=== PATIENT | female | born 1955 | race Caucasian/White ===

== ENCOUNTER 2017-04-28 15:54 | Inpatient (IN) ==
[2017-04-28] MEDS ORDERED: KETOROLAC 15 MG/ML INJECTION IVP ONE (16:23)
--- NOTE | 2017-04-28 16:29 | Emergency Department Report ---
Fever HPI - General Chief Complaint: Fever <Catarino Rouse 04/30/17 10:51> Stated Complaint: achy,nausea <Catarino Rouse 04/30/17 10:51> Time Seen by Provider: 04/28/17 16:11 <Catarino Rouse 04/30/17 10:51> Source: patient, family <Donna Gtz 04/28/17 16:32> Mode of arrival: wheelchair <Donna Gtz 04/28/17 16:32> Limitations: physical limitation <Donna Gtz 04/28/17 16:32> - History of Present Illness HPI Narrative: Pt was seen in the ER yesterday for fever and general aches and pains. Pt was given pain meds and antibiotics for home after having multiple lab and radiology exams. Pt returns today with continued complaint of general malaise, fever, and pain. Pt SpO2 on RA on arrival are 77%. PT has a history of MS. <TresaDonna Davidson 04/28/17 16:32> MD complaint: fever, malaise, weakness <Donna Gtz 04/28/17 16:32> Onset (ago): day(s) <JerrellbethDonna Davidson 04/28/17 16:32> Associated symptoms: denies other symptoms <Donna Gtz 04/28/17 16: 32> Relieving factors: nothing <JerrellbethDonna Davidson 04/28/17 16:32> Exacerbating factors: nothing <TresaDonna Davidson 04/28/17 16:32> Treatments prior to arrival fever: antibiotics, other <Donna Gtz 16:32> - Related Data Home Medications Medication Instructions Recorded Confirmed Baclofen [Lioresal Intrathecal] 1 ml IT CONT #0 03/02/12 04/28/17 Cinnamon Bark [Cinnamon] 500 mg PO DAILY #0 03/02/12 04/28/17 Interferon Beta-1A [Avonex] 0.5 ml IM WEEKLY #0 03/02/12 04/28/17 [place]-3 Fatty Acids [Fish Oil] 300 mg PO DAILY #0 03/02/12 04/28/17 Atenolol 25 mg PO DAILY #0 09/29/15 04/28/17 Oxybutynin Chloride [Oxybutynin 20 mg PO DAILY #0 09/29/15 04/28/17 Chloride ER] Pravastatin Sodium [Pravachol] 40 mg PO HS #0 09/29/15 04/28/17 Sertraline HCl 100 mg PO DAILY #0 09/29/15 04/28/17 Meloxicam 15 mg PO DAILY #0 tab 08/04/16 04/28/17 Acetaminophen [Tylenol Extra 1 - 2 tab PO Q6H PRN #0 tab 08/14/16 04/28/17 Strength] Omeprazole 20 mg PO ACB #0 tab 08/14/16 04/28/17 Triamcinolone Acetonide [Nasacort] 2 spray EA NOSTRIL DAILY PRN #0 ml 08/14/16 04/28/17 Multivitamin [Multivitamins] 1 each PO DAILY 04/27/17 04/28/17 Previous Rx's Medication Instructions Recorded Levofloxacin [Levaquin] 500 mg PO DAILY #9 tab 04/27/17 Oxycodone/Acetaminophen 5/325 1 - 2 tab PO Q4-6HPRN PRN #20 tab 04/27/17 [Percocet 5/325] <Catarino Rouse 04/30/17 10:51> Allergies Allergy/AdvReac Type Severity Reaction Status Date / Time clindamycin Allergy Mild PRURITIS Verified 04/28/17 16:03 sulfamethoxazole Allergy Unknown Verified 04/28/17 16:03 trimethoprim Allergy Unknown Verified 04/28/17 16:03 ceftriaxone sodium Allergy Mild PRURITIS Uncoded 04/28/17 16:03 <Catarino Rouse 04/30/17 10:51> Review of Systems All systems: reviewed and negative except as stated <Donna Gtz 16:32> Constitutional: Reports: fever, weakness <Donna Gtz 04/28/17 16:32> Respiratory: Denies: cough, dyspnea <Donna Gtz 04/28/17 16:32> Gastrointestinal: Denies: nausea, vomiting, diarrhea <Donna Gtz 16:32> Genitourinary: Denies: urgency <Donna Gtz 04/28/17 16:32> Musculoskeletal: Reports: other <Donna Gtz 04/28/17 16:32> Neurological: Reports: as per HPI <Donna Gtz 04/28/17 16:32> Endocrine: Reports: fatigue <Donna Gtz 04/28/17 16:32> [facility] Patient Stated Medical History Multiple Sclerosis Yes Post Menopausal Yes Clinic Medical History (Last Updated 04/27/17 @ 13:11 by Brit Barakat, [facility] Multiple sclerosis (Chronic Medical) <Catarino Rouse - 04/30/17 10:51> Surgical History: *baclofen pump <Donna Gtz 04/28/17 16:32> - Social History Smoking status: Never smoker <Donna Gtz 04/28/17 16:32> Physical Exam - Limitations Limitations: physical limitation <Donna Gtz 04/28/17 16:32> - General General appearance: alert, in no apparent distress <Donna Gtz 04/28 16:32> - Normal Exams: Head:: Normocephalic without trauma <Donna Gtz 04/28/17 16:32> Eyes:: Pupils are PERRLA w/ EOMI <Donna Gtz 04/28/17 16:32> Neck:: Full range of motion, without adenopathy <Donna Gtz 16:32> Chest/Respirations:: Clear all [place], with good airflow, and symmetry bilaterally <Donna Gtz 04/28/17 16:32> Cardiovascular:: Regular rate and rhythm, without murmur or gallop, Pulses 2+ all extremities <Donna Gtz 04/28/17 16:32> Abdomen:: Bowel sounds positive, soft, non-tender, non-distended <Donna Gtz 04/28/17 16:32> Musculoskeletal:: No tenderness, or deformity noted, all extremities < TresaDonna Davidson 04/28/17 16:32> Integumentary:: No rashes <SteinDonna campos 09/19/17 16:32> Neurological:: Patient is alert, and oriented <Donna Gtz Kalpana 04/28/17 16:32> Psychiatric:: Patient exhibits, appropriate attention, emotion and affect < Bia Gtzan Kalpana 04/28/17 16:32> Course - Consultations Consultation #1: Mitchell <JerrellBia camposan Kalpana 04/28/17 17:47> Time: 17:40 <JerrellDonna campos 04/28/17 17:47> Vital Signs Temperature 101.1 F H 04/28/17 16:04 Pulse Rate 103 H 04/28/17 16:04 Respiratory Rate 24 04/28/17 16:04 Blood Pressure 132/60 04/28/17 16:04 Pulse Oximetry 86 L 04/28/17 16:04 Temperature 97.8 F 04/30/17 07:26 Pulse Rate 79 04/30/17 07:26 Respiratory Rate 16 04/30/17 07:26 Blood Pressure 117/65 04/30/17 07:26 Pulse Oximetry 94 04/30/17 07:26 <Catarino Rouse - 04/30/17 10:51> Fever - MDM Narrative Medical decision making narrative: IV Levaquin ordered at 1830 when sepsis was considered. The blood pressure of 72/45 in the ED was an erroneous value taken with the patient moving her arm which was retaken immediately and showed a systolic blood pressure greater than 90. <Catarino Rouse - 04/30/17 10:51> Pt returns after continuing to not feel well after visit yesterday which revealed cellulitis and uti. Cellulitis continues to expand to [place] LE per , initial SpO2 77 % on RA, and pt remains febrile at 101.3. PT WAS STARTED ON LEVAQUIN. LABS SHOW IMPROVEMENT IN WBC BUT BANDS REMAIN AT 14, RENAL AND LIVER FUNCTION ARE ALSO INCREASING. DR WALLS NOTIFIED OF PTS RETURN AND CONTINUED COMPLAINT. PT TO BE ADMITTED TO MEDICAL <TresaDonna Acuna 04/28/17 17:54> - Differential Diagnosis Likely: cellulitis, fever of unknown origin, community acquired pneumonia, viral infection <Donna Gtz 04/28/17 16:32> - Lab Data Attestation: I reviewed the patient's lab results. <Donna Gtz R - 04/28 17:54> Result diagrams: 04/30/17 04:03 04/30/17 04:03 <Catarino Rouse C - 04/30/17 10:51> Lab Results 04/28/17 04/28/17 04/28/17 Range/Units 16:51 16:51 16:51 WBC 12.6 H (4.5-11.0) T/MM3 RBC 4.34 (4.00-5.20) M/MM3 Hgb 12.1 D (12-16) GM/DL Hct 38.0 D (36-46) % MCV 87.6 (80-100) UM3 MCH 27.9 (26-34) UUG MCHC 31.8 (31-37) GM/DL RDW Std Deviation 44.4 (36.9-50.2) FL Plt Count 164 (130-400) T/MM3 MPV 9.5 (9.4-12.4) UM3 Immature Gran % (Auto) Not performed Neut % (Auto) Not performed Lymph % (Auto) Not performed [place] % (Auto) Not performed Eos % (Auto) Not performed Baso % (Auto) Not performed Neut # Not performed Lymph # Not performed [place] # Not performed Eos # Not performed Baso # Not performed Abs Immat Gran (auto) Not performed Neutrophils % (Manual) 75.0 H (33-66) % Band Neutrophils % 14.0 H (0-6) % Lymphocytes % (Manual) 9.0 L (23-45) % Monocytes % (Manual) 2.0 (0-9.0) % Neutrophils # (Manual) 9.5 H (1.8-7.7) T/MM3 Band Neutrophils # 1.8 T/MM3 Lymphocytes # (Manual) 1.1 (1-4.8) T/MM3 Monocytes # (Manual) 0.3 (0-0.8) T/MM3 RBC Morph Comment Normal D-Dimer (0-230) NG/ML Turbidity < 20 (0-20) Sodium 143 (134-144) MEQ/L Potassium 4.0 (3.6-5) MEQ/L Chloride 103 (98-107) MEQ/L Carbon Dioxide 29 (22-30) MEQ/L Anion Gap 11 (5-15) MEQ/L BUN 24.0 H (7-17) MG/DL Creatinine 0.8 (0.7-1.2) MG/DL GFR Calculation 73 BUN/Creatinine Ratio 30 H (6-26) RATIO Glucose 87 (65-110) MG/DL Calculated Osmolality 278 (261-280) MOSM/KG Calcium 8.9 D (8.4-10.2) MG/DL Total Bilirubin 0.60 (0.20-1.30) MG/DL Icterus Index < 2 (0-7) AST 56 H D (14-36) U/L ALT 60 H (9-52) U/L Alkaline Phosphatase 82 (38-126) U/L Troponin I (0-0.12) ng/ml C-Reactive Protein 253.9 H (0-9) MG/L Total Protein 7.2 (6.3-8.2) G/DL Albumin 3.9 (3.5-5.0) G/DL Globulin 3.3 (2.4-3.6) G/DL Albumin/Globulin Ratio 1.2 (1.1-2.2) RATIO Plasma Lactate (0.6-2.2) MMOL/L Procalcitonin 6.25 H* NG/ML Specimen Hemolysis < 15 (0-25) 04/28/17 04/28/17 04/28/17 Range/Units 16:51 16:51 18:00 WBC (4.5-11.0) T/MM3 RBC (4.00-5.20) M/MM3 Hgb (12-16) GM/DL Hct (36-46) % MCV (80-100) UM3 MCH (26-34) UUG MCHC (31-37) GM/DL RDW Std Deviation (36.9-50.2) FL Plt Count (130-400) T/MM3 MPV (9.4-12.4) UM3 Immature Gran % (Auto) Neut % (Auto) Lymph % (Auto) [place] % (Auto) Eos % (Auto) Baso % (Auto) Neut # Lymph # [place] # Eos # Baso # Abs Immat Gran (auto) Neutrophils % (Manual) (33-66) % Band Neutrophils % (0-6) % Lymphocytes % (Manual) (23-45) % Monocytes % (Manual) (0-9.0) % Neutrophils # (Manual) (1.8-7.7) T/MM3 Band Neutrophils # T/MM3 Lymphocytes # (Manual) (1-4.8) T/MM3 Monocytes # (Manual) (0-0.8) T/MM3 RBC Morph Comment D-Dimer 276 H (0-230) NG/ML Turbidity (0-20) Sodium (134-144) MEQ/L Potassium (3.6-5) MEQ/L Chloride (98-107) MEQ/L Carbon Dioxide (22-30) MEQ/L Anion Gap (5-15) MEQ/L BUN (7-17) MG/DL Creatinine (0.7-1.2) MG/DL GFR Calculation BUN/Creatinine Ratio (6-26) RATIO Glucose (65-110) MG/DL Calculated Osmolality (261-280) MOSM/KG Calcium (8.4-10.2) MG/DL Total Bilirubin (0.20-1.30) MG/DL Icterus Index (0-7) AST (14-36) U/L ALT (9-52) U/L Alkaline Phosphatase (38-126) U/L Troponin I < 0.012 (0-0.12) ng/ml C-Reactive Protein (0-9) MG/L Total Protein (6.3-8.2) G/DL Albumin (3.5-5.0) G/DL Globulin (2.4-3.6) G/DL Albumin/Globulin Ratio (1.1-2.2) RATIO Plasma Lactate 0.7 (0.6-2.2) MMOL/L Procalcitonin NG/ML Specimen Hemolysis < 15 (0-25) <Catarion Rouse - 04/30/17 10:51> Lab Results 04/28/17 04/28/17 04/28/17 Range/Units 16:51 16:51 16:51 WBC 12.6 H (4.5-11.0) T/MM3 RBC 4.34 (4.00-5.20) M/MM3 Hgb 12.1 D (12-16) GM/DL Hct 38.0 D (36-46) % MCV 87.6 (80-100) UM3 MCH 27.9 (26-34) UUG MCHC 31.8 (31-37) GM/DL RDW Std Deviation 44.4 (36.9-50.2) FL Plt Count 164 (130-400) T/MM3 MPV 9.5 (9.4-12.4) UM3 Immature Gran % (Auto) Not performed Neut % (Auto) Not performed Lymph % (Auto) Not performed [place] % (Auto) Not performed Eos % (Auto) Not performed Baso % (Auto) Not performed Neut # Not performed Lymph # Not performed [place] # Not performed Eos # Not performed Baso # Not performed Abs Immat Gran (auto) Not performed Neutrophils % (Manual) 75.0 H (33-66) % Band Neutrophils % 14.0 H (0-6) % Lymphocytes % (Manual) 9.0 L (23-45) % Monocytes % (Manual) 2.0 (0-9.0) % Neutrophils # (Manual) 9.5 H (1.8-7.7) T/MM3 Band Neutrophils # 1.8 T/MM3 Lymphocytes # (Manual) 1.1 (1-4.8) T/MM3 Monocytes # (Manual) 0.3 (0-0.8) T/MM3 RBC Morph Comment Normal D-Dimer (0-230) NG/ML Turbidity < 20 (0-20) Sodium 143 (134-144) MEQ/L Potassium 4.0 (3.6-5) MEQ/L Chloride 103 (98-107) MEQ/L Carbon Dioxide 29 (22-30) MEQ/L Anion Gap 11 (5-15) MEQ/L BUN 24.0 H (7-17) MG/DL Creatinine 0.8 (0.7-1.2) MG/DL GFR Calculation 73 BUN/Creatinine Ratio 30 H (6-26) RATIO Glucose 87 (65-110) MG/DL Calculated Osmolality 278 (261-280) MOSM/KG Calcium 8.9 D (8.4-10.2) MG/DL Total Bilirubin 0.60 (0.20-1.30) MG/DL Icterus Index < 2 (0-7) AST 56 H D (14-36) U/L ALT 60 H (9-52) U/L Alkaline Phosphatase 82 (38-126) U/L Troponin I (0-0.12) ng/ml C-Reactive Protein 253.9 H (0-9) MG/L Total Protein 7.2 (6.3-8.2) G/DL Albumin 3.9 (3.5-5.0) G/DL Globulin 3.3 (2.4-3.6) G/DL Albumin/Globulin Ratio 1.2 (1.1-2.2) RATIO Plasma Lactate (0.6-2.2) MMOL/L Procalcitonin 6.25 H* NG/ML Specimen Hemolysis < 15 (0-25) 04/28/17 04/28/17 04/28/17 Range/Units 16:51 16:51 18:00 WBC (4.5-11.0) T/MM3 RBC (4.00-5.20) M/MM3 Hgb (12-16) GM/DL Hct (36-46) % MCV (80-100) UM3 MCH (26-34) UUG MCHC (31-37) GM/DL RDW Std Deviation (36.9-50.2) FL Plt Count (130-400) T/MM3 MPV (9.4-12.4) UM3 Immature Gran % (Auto) Neut % (Auto) Lymph % (Auto) [place] % (Auto) Eos % (Auto) Baso % (Auto) Neut # Lymph # [place] # Eos # Baso # Abs Immat Gran (auto) Neutrophils % (Manual) (33-66) % Band Neutrophils % (0-6) % Lymphocytes % (Manual) (23-45) % Monocytes % (Manual) (0-9.0) % Neutrophils # (Manual) (1.8-7.7) T/MM3 Band Neutrophils # T/MM3 Lymphocytes # (Manual) (1-4.8) T/MM3 Monocytes # (Manual) (0-0.8) T/MM3 RBC Morph Comment D-Dimer 276 H (0-230) NG/ML Turbidity (0-20) Sodium (134-144) MEQ/L Potassium (3.6-5) MEQ/L Chloride (98-107) MEQ/L Carbon Dioxide (22-30) MEQ/L Anion Gap (5-15) MEQ/L BUN (7-17) MG/DL Creatinine (0.7-1.2) MG/DL GFR Calculation BUN/Creatinine Ratio (6-26) RATIO Glucose (65-110) MG/DL Calculated Osmolality (261-280) MOSM/KG Calcium (8.4-10.2) MG/DL Total Bilirubin (0.20-1.30) MG/DL Icterus Index (0-7) AST (14-36) U/L ALT (9-52) U/L Alkaline Phosphatase (38-126) U/L Troponin I < 0.012 (0-0.12) ng/ml C-Reactive Protein (0-9) MG/L Total Protein (6.3-8.2) G/DL Albumin (3.5-5.0) G/DL Globulin (2.4-3.6) G/DL Albumin/Globulin Ratio (1.1-2.2) RATIO Plasma Lactate 0.7 (0.6-2.2) MMOL/L Procalcitonin NG/ML Specimen Hemolysis < 15 (0-25) <Donna Gtz 04/28/17 17:47> Disposition Clinical Impression: Fever of unknown origin, Hypoxia Cellulitis Qualifiers: Site of cellulitis: extremity Site of cellulitis of extremity: lower extremity Laterality: right Qualified Code(s): L03.115 - Cellulitis of right lower limb Sepsis Qualifiers: Sepsis type: Escherichia coli Qualified Code(s): A41.51 - Sepsis due to Escherichia coli [E. coli] UTI (urinary tract infection) Qualifiers: Urinary tract infection type: acute cystitis Hematuria presence: without hematuria Qualified Code(s): N30.00 - Acute cystitis without hematuria <Catarino Rouse 04/30/17 10:51> Disposition: 02 To [facility] Acute Care <Catarino Rouse 04/30/17 10:51> Condition: Stable <Catarino Rouse 04/30/17 10:51> Instructions: <Catarino Rouse 04/30/17 10:51> Prescriptions: No Action [place]-3 Fatty Acids [Fish Oil] 300 mg PO DAILY #0 Cinnamon Bark [Cinnamon] 500 mg PO DAILY #0 Sertraline HCl 100 mg PO DAILY #0 Atenolol 25 mg PO DAILY #0 Oxybutynin Chloride [Oxybutynin Chloride ER] 20 mg PO DAILY #0 Meloxicam 15 mg PO DAILY #0 tab Acetaminophen [Tylenol Extra Strength] 1 - 2 tab PO Q6H PRN #0 tab PRN Reason: PAIN/FEVER Omeprazole 20 mg PO ACB #0 tab Triamcinolone Acetonide [Nasacort] 2 spray EA NOSTRIL DAILY PRN #0 ml PRN Reason: ALLERY SYMPTOMS Multivitamin [Multivitamins] 1 each PO DAILY Oxycodone/Acetaminophen 5/325 [Percocet 5/325] 1 - 2 tab PO Q4-6HPRN PRN #20 tab PRN Reason: Pain Interferon Beta-1A [Avonex] 0.5 ml IM WEEKLY #0 Baclofen [Lioresal Intrathecal] 1 ml IT CONT #0 Pravastatin Sodium [Pravachol] 40 mg PO HS #0 Levofloxacin [Levaquin] 500 mg PO DAILY #9 tab <Catarino Rouse - 04/30/17 10 :51> Referrals: Erasto Mart MD [Family Provider] - <Catarino Rouse - 04/30/17 10:51> Forms: <Catarino Rouse - 04/30/17 10:51> Time of Disposition: 17:54 <Donna Gtz - 04/28/17 17:54> - Seen By: midlevel <Donna Gtz - 04/28/17 17:54> Addendum entered and electronically signed by Donna Gtz APRN 19:12: PT TO BE ADMITTED PER DR WALLS. LACTATE PROLACITIN, DDIMER AND RESULTING CT, TROPI AND EKG OBTAINED WHILE STILL IN THE ED AND REVIEWED
[2017-04-28] MEDS: NS 1,000 ML IV SCH ×2 (17:13→21:03)
[2017-04-28] MEDS: LEVOFLOXACIN PREMIX 250 MG/50 ML BAG IV SCH ×2 (19:14→20:31)
[2017-04-28] MEDS ORDERED: NS 1,000 ML IV ONE (19:18)
[2017-04-28] MEDS ORDERED: IOHEXOL 350mg/ml 75ml INJECTION ONE (19:22)
[2017-04-28] MEDS ORDERED: NS 100 ML ONE (19:22)
[2017-04-28] MEDS ORDERED: SALINE FLUSH 10ml SYRINGE ONE (19:22)
--- NOTE | 2017-04-28 19:26 | History & Physical Report ---
<Crystal Velásquez - Last Filed: 04/28/17 20:05> History of Present Illness Date: 04/28/17 Chief complaint: weakness HPI: Patient is a 61-year-old patient with multiple sclerosis who presented to the emergency room yesterday with complaint of nausea, vomiting, and weakness. She was started on Levaquin for UTI and cellulitis of her left second toe. She returned to the emergency room today because she was continuing to feel very weak and was not improving. On arrival to the emergency room today she had SPO2 on room air of 77%. Her white blood cell count yesterday was 18.6 and is down to 12.6 today. Her band neutrophils were 12% yesterday and 14% today. Liver enzymes slightly elevated today compared to yesterday. C-reactive protein is high at 253. Lactate was normal yesterday 1.5 and is 0.7 today. Her pro calcitonin yesterday was 0.42 and today is elevated at 6.25. Her urinalysis yesterday showed positive nitrates and 3+ bacteria. Her group A strep screen was negative and culture is pending. Chest x-ray performed at yesterday's visit showed an "enlarging left diaphragmatic defect with an intrathoracic stomach and lower lobe areas of atelectasis or scarring. Superimposed pneumonia is difficult to entirely exclude." CT scan also showed the "large left-sided diaphragmatic defect containing herniated stomach and colon within the chest. There is nearby consolidation which probably due to chronic compressive atelectasis although small area of underlying pneumonia or aspiration cannot be entirely excluded. 6 mm right middle lobe pulmonary nodule." Patient is seen in the emergency room with her present. She reports she started feeling "bad" the night before last and symptoms have steadily progressed. Her thinks the redness to the left lower extremity has increased. She continues to feel achy and weak, but is no longer having nausea. She has chronic swelling to her lower extremities, with the left always being larger than the right. She ambulates using a power scooter. Review of Systems Comprehensive ROS: completed and no additional positive findings except those as stated - Constitutional Constitutional: Present: fever(s), lethargy, weakness - EENMT Mouth/Throat: Present: dry mouth - Musculoskeletal Musculoskeletal: Present: muscle weakness (chronic) Musculoskeletal Comments: Chronic lower extremity swelling with left leg being chronically larger than the right. - Integumentary/Breasts Integumentary: Present: erythema (bilateral lower extremities left greater than right), wounds (left second toe) [facility] Medical History Multiple sclerosis (Chronic Medical) Hypertension Osteoarthritis Surgical History: *baclofen pump - Social History Smoking status: Never smoker Substance use type: does not use Alcohol intake frequency: does not drink Housing: house Household members: spouse Current occupational status: disabled Social history: Dr. Erasto Mart-PCP Dr. Medeiros- neurologist Medications Home Medications Medication Instructions Recorded Confirmed Type Baclofen [Lioresal Intrathecal] 1 ml IT CONT #0 03/02/12 04/28/17 History Cinnamon Bark [Cinnamon] 500 mg PO DAILY #0 03/02/12 04/28/17 History Interferon Beta-1A [Avonex] 0.5 ml IM WEEKLY #0 03/02/12 04/28/17 History [place]-3 Fatty Acids [Fish Oil] 300 mg PO DAILY #0 03/02/12 04/28/17 History Atenolol 25 mg PO DAILY #0 09/29/15 04/28/17 History Oxybutynin Chloride [Oxybutynin 20 mg PO DAILY #0 09/29/15 04/28/17 History Chloride ER] Pravastatin Sodium [Pravachol] 40 mg PO HS #0 09/29/15 04/28/17 History Sertraline HCl 100 mg PO DAILY #0 09/29/15 04/28/17 History Meloxicam 15 mg PO DAILY #0 tab 08/04/16 04/28/17 History Acetaminophen [Tylenol Extra 1 - 2 tab PO Q6H PRN #0 tab 08/14/16 04/28/17 History Strength] Omeprazole 20 mg PO ACB #0 tab 08/14/16 04/28/17 History Triamcinolone Acetonide [Nasacort] 2 spray EA NOSTRIL DAILY PRN #0 ml 08/14/16 04/28/17 History Multivitamin [Multivitamins] 1 each PO DAILY 04/27/17 04/28/17 History Allergies Allergy/AdvReac Type Severity Reaction Status Date / Time clindamycin Allergy Mild PRURITIS Verified 04/28/17 16:03 sulfamethoxazole Allergy Unknown Verified 04/28/17 16:03 trimethoprim Allergy Unknown Verified 04/28/17 16:03 ceftriaxone sodium Allergy Mild PRURITIS Uncoded 04/28/17 16:03 Exam Vital Signs: Temperature 101.1 F H 04/28/17 16:04 Pulse Rate 81 04/28/17 19:00 Respiratory Rate 24 04/28/17 16:04 Blood Pressure 107/51 04/28/17 19:00 Pulse Oximetry 94 04/28/17 19:00 - Constitutional Present: no acute distress, well nourished, well developed - Routine HEENT Exam Head: Present: normocephalic, atraumatic Eye: Present: EOMI, PERRL ENT: Present: mucous membranes moist (lips are dry), dentition normal - Routine Neck Exam Present: supple, full ROM - Routine Respiratory Exam Present: CTA bilaterally. Absent: wheezes - Routine Cardiovascular Exam Present: RRR, S1, S2. Absent: murmur - Routine Abdominal Exam Present: soft, normoactive bowel sounds, non distended. Absent: tenderness Comments: Baclofen pump palpable right lower quadrant - Routine Extremities Exam Present: edema (left greater than right), normal capillary refill, tenderness ( left lower leg in the area of erythema) Comments: Erythema to the left lower leg and foot, especially the second toe. She has a scabbed wound on the distal end of the second toe. Evidence of dried blood around the left great toenail. Swelling is significantly greater on the left lower extremity compared to the right ( reports this is chronic), however , he believes the redness of the left lower extremity is increasing. - Routine Skin Exam Present: dry, warm - Routine Neurological Exam Present: alert, oriented X3 Cranial nerves 3 through 12 intact - Routine Psychiatric Exam Present: normal affect, normal thought process Results - Labs CBC & Chem 7: 04/28/17 16:51 04/28/17 16:51 Labs: Laboratory Tests 04/28/17 04/28/17 04/28/17 16:51 16:51 16:51 D-Dimer 276 H AST 56 H D ALT 60 H Troponin I C-Reactive Protein 253.9 H Procalcitonin 6.25 H* 04/28/17 16:51 D-Dimer AST ALT Troponin I < 0.012 C-Reactive Protein Procalcitonin - Imaging and Cardiology Chest x-ray Additional comments: Date of Exam: 04/27/17 Ordering Provider: Natalie Osullivan APRN Type of Exam(s): CT chest w con Reason for Exam(s): abnormality in left chest on x-ray Indication: abnormality in left chest on x-ray PROCEDURE: CT chest w con: Encounter: Initial Comparison: None Technique: Axial CT images were performed through the chest after the administration of intravenous contrast. Coronal and sagittal two-dimensional reformats. Automated Exposure Control and Iterative Reconstruction dose reducing techniques were utilized. Contrast: Omnipaque 300 72 mL Findings: Airspace consolidation in the left lower lobe with bronchiectasis and a large left-sided diaphragmatic defect containing the majority of the stomach and portions of the transverse colon with associated compressive atelectasis peripherally. 6 mm noncalcified right middle lobe nodule on image #38. Mild right basilar atelectasis. No pneumothorax or effusion. The central airways are patent. Large right shoulder effusion. No axillary or mediastinal adenopathy. Heart size is normal. No pericardial effusion. The upper abdomen shows no acute findings. Bone windows show old right chest wall deformity. Impression: 1. Large left-sided diaphragmatic defect containing herniated stomach and colon within the chest. There is nearby consolidation which is probably due to chronic compressive atelectasis although a small area of underlying pneumonia or aspiration cannot be entirely excluded. 2. 6 mm right middle lobe pulmonary nodule. Recommend chest CT follow-up in one year. There is a preliminary report by [facility]. . CT scan - chest Additional comments: Date of Exam: 04/27/17 Ordering Provider: Natalie Osullivan APRN Type of Exam(s): CT chest w con Reason for Exam(s): abnormality in left chest on x-ray Indication: abnormality in left chest on x-ray PROCEDURE: CT chest w con: Encounter: Initial Comparison: None Technique: Axial CT images were performed through the chest after the administration of intravenous contrast. Coronal and sagittal two-dimensional reformats. Automated Exposure Control and Iterative Reconstruction dose reducing techniques were utilized. Contrast: Omnipaque 300 72 mL Findings: Airspace consolidation in the left lower lobe with bronchiectasis and a large left-sided diaphragmatic defect containing the majority of the stomach and portions of the transverse colon with associated compressive atelectasis peripherally. 6 mm noncalcified right middle lobe nodule on image #38. Mild right basilar atelectasis. No pneumothorax or effusion. The central airways are patent. Large right shoulder effusion. No axillary or mediastinal adenopathy. Heart size is normal. No pericardial effusion. The upper abdomen shows no acute findings. Bone windows show old right chest wall deformity. Impression: 1. Large left-sided diaphragmatic defect containing herniated stomach and colon within the chest. There is nearby consolidation which is probably due to chronic compressive atelectasis although a small area of underlying pneumonia or aspiration cannot be entirely excluded. 2. 6 mm right middle lobe pulmonary nodule. Recommend chest CT follow-up in one year. There is a preliminary report by [facility]. . Assessment and Plan (1) Cellulitis Current visit: Yes Status: Acute (2) Hypoxia Current visit: Yes Status: Acute (3) UTI (urinary tract infection) Current visit: Yes Status: Acute (4) Severe sepsis Current visit: Yes Status: Acute DVT Prophylaxis: Lovenox Resuscitation Status: Full Code Assessment and Plan: Impression Severe sepsis as indicated by hypoxia, leukocytosis, bandemia, fever of 101.1, tachycardia, MAP less than 65 and systolic blood pressure less than 90. Cellulitis-left lower extremity UTI Multiple sclerosis Implanted Baclofen pump Immunosuppression secondary to weekly interferon Hyperlipidemia Hypertension Plan Admit to inpatient status under the hospitalist service, Dr. Medrano attending. Expect patient to be hospitalized for at least 2 overnights given her failed outpatient treatment, hypoxia, immunosuppressed status, and severe sepsis. Continue Levaquin and add vancomycin. Pharmacy consult placed. Lovenox for DVT prophylaxis. Avoid SCDs given her lower extremity cellulitis Given the positive d-dimer and hypoxia, CTA and repeat chest x-ray were ordered. Bilateral venous Doppler of lower extremities to rule out DVT given positive d- dimer and lower extremity edema. Continue IV fluids for sepsis and hypotension. Repeat lactate is pending. Repeat CBC and CMP in a.m. given the leukocytosis and elevated LFTs Case discussed with Dr. Medrano. Upon dismissal, patient's care to return to her PCP, Dr. Mart. Hospital Course Summary Disclaimer: The visit summary below is not to be considered part of the above Progress Note. Hospital Course: Severe sepsis as indicated by hypoxia, leukocytosis, bandemia, fever of 101.1, tachycardia, MAP less than 65 and systolic blood pressure less than 90. 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 Medrano attending. Expect patient to be hospitalized for at least 2 overnights given her failed outpatient treatment, hypoxia, immunosuppressed status, and severe sepsis. Continue Levaquin and add vancomycin. Pharmacy consult placed. Lovenox for DVT prophylaxis. Avoid SCDs given her lower extremity cellulitis Given the positive d-dimer and hypoxia, CTA and repeat chest x-ray were ordered. Bilateral venous Doppler of lower extremities to rule out DVT given positive d- dimer and lower extremity edema. Continue IV fluids for sepsis and hypotension. Repeat lactate is pending. Repeat CBC and CMP in a.m. given the leukocytosis and elevated LFTs Case discussed with Dr. Medrano. Upon dismissal, patient's care to return to her PCP, Dr. Mart. <MitchellNydia - Last Filed: 04/28/17 21:17> History of Present Illness Date: 04/28/17 [facility] Patient Stated Medical History Multiple Sclerosis Yes Hypertension Yes Gastroesophageal Reflux Yes Disease Hiatal Hernia Yes Other Musculoskeletal Yes: Arthritis in Left Shoulder Cellulitis Yes: Chronic Sepsis Yes Depression Yes Post Menopausal Yes Clinic Medical History (Last Updated 04/27/17 @ 13:11 by Brit Barakat Sherif) Multiple sclerosis (Chronic Medical) Exam Vital Signs: Temperature 98.3 F 04/28/17 20:29 Pulse Rate 84 04/28/17 20:29 Respiratory Rate 20 04/28/17 20:29 Blood Pressure 124/65 04/28/17 20:29 Pulse Oximetry 94 04/28/17 20:29 Height/Weight/BMI: Height 1.75 m Weight 82.2 kg Body Mass Index 26.7 Results - Labs CBC & Chem 7: 04/28/17 16:51 04/28/17 16:51 Assessment and Plan (1) Cellulitis Current visit: Yes Status: Acute (2) Hypoxia Current visit: Yes Status: Acute (3) UTI (urinary tract infection) Current visit: Yes Status: Acute (4) Severe sepsis Current visit: Yes Status: Acute Assessment and Plan: 04/28/2017-I reviewed this chart, the patient history, and the CROWN PERFORATOR OPERATOR's/PA's documented findings as above. We discussed and formulated the assessment and plan as above with the additions below.-Dr. Medrano Patient is seen this evening accompanied by her . She states she's felt poorly for a couple of days and feels achy in her shoulders and hips, to the point that it has been hard to sleep. She's had some nausea and dry heaves. She does not feel like she has aspirated any emesis. She had a sore throat but that is now improving. She denied any rhinorrhea or cough. She has not had any chest pain. She is constipated and that is a chronic issue for her. She states she has not urinated since this morning and does not have urge to go. She normally urinates without difficulty and does not require straight catheterization has not had problems with urinary retention in the past. She has been have noted that she chronically has mild bilateral lower extremity edema more so on the left than the right and some mild chronic erythema on her legs. Over the past couple days however the left leg is much more edematous than normal and is much more erythematous and the erythema is going up to the back of her calf. She has some erythema on the right anterior cheng which is more erythematous than normal as well. She denies having any shortness of breath. She denies having any dysuria. On exam she is alert but appears fatigued. Chest is clear to auscultation. Cardiovascular reveals a regular rate and rhythm with a positive S3. Abdomen is soft with hypoactive bowel sounds. She has a medication pump in her right upper abdomen. She has bilateral lower extremity edema markedly more so on the left than the right. She has erythema of the left foot and calf. Erythema goes up about three [address] up the calf. Right lower extremity is mildly edematous with some mild erythema on the anterior cheng. She complains of left heel pain and on exam I do not see any skin breakdown or bruising. CTA chest done today because of hypoxia and mildly elevated d-dimer reveals No evidence for central or proximal pulmonary embolism Airspace disease in the left lower lung. Findings consistent with focal pneumonia. Further follow-up evaluation to exclude neoplasm if clinically indicated. Diffuse emphysema Pertinent lab reveals a white count of 12.6, bands 14, neutrophils 75. D-dimer elevated at 276 Pro-calcitonin elevated at 6.25. Plasma lactate 0.7. Troponin normal. C- reactive protein elevated at 253.9. Mild elevated transaminases with AST 56 and ALT of 60. Impression Severe sepsis Cellulitis of the left leg Possible UTI Possible pneumonia versus atelectasis versus other Immunocompromised secondary to MS treatments with interferon Hypoxia Mildly elevated d-dimer Chronic bilateral lower extremity edema, currently worsened Hypotension-improved with IV fluids Plan Levaquin and vancomycin for now for severe sepsis and cellulitis. Consult Dr. Dooley for infectious disease evaluation especially in light of her immunosuppression. Venous Doppler of the bilateral legs to rule out DVT Monitor vital signs closely Continue IV fluids Repeat lactate regarding severe sepsis CBC and comprehensive metabolic profile tomorrow Hold statin secondary to mildly elevated liver enzymes Check magnesium and phosphorus tomorrow regarding weakness Hospital Course Summary Disclaimer: The visit summary below is not to be considered part of the above Progress Note.
[2017-04-28] MEDS ORDERED: LEVOFLOXACIN PB 750 MG/150 ML BAG IV SCH (19:30)
[2017-04-28] MEDS ORDERED: LEVOFLOXACIN PB 500 MG/100 ML BAG IV SCH (19:45)
[2017-04-28] MEDS ORDERED: ENOXAPARIN 40 MG/0.4 ML INJECTION SQ SCH (20:00)
[2017-04-28 20:09] VITALS: BMI 26.7
[2017-04-28] MEDS ORDERED: HYDROMORPHONE 2 MG/ML INJECTION IVP PRN (21:15)
[2017-04-28] MEDS: Oxycodone/Acetaminophen 5/325 1 TAB PO PRN (21:25)
[2017-04-29] MEDS: NS 1,000 ML IV SCH ×3 (01:10→17:48)
[2017-04-29] MEDS ORDERED: NS 1,000 ML IV ONE (01:21)
[2017-04-29] MEDS: Oxycodone/Acetaminophen 5/325 1 TAB PO PRN (02:06)
[2017-04-29] MEDS ORDERED: NON-FORMULARY MEDICATION 1 EACH EACH (Omeprazole [Omeprazole] 20 MG) PO SCH (06:30)
[2017-04-29] MEDS: BACLOFEN PO SCH ×2 (06:35→20:49)
[2017-04-29] MEDS: OMEPRAZOLE 20 MG CAPSULE PO SCH (06:40)
--- NOTE | 2017-04-29 08:34 | CT Scan Report ---
Indication: HYPOXIA, ELEVATED DDIMER PROCEDURE: CT angio pulm emboli: Encounter: Initial Comparison: Chest CT dated April 27, 2017 Technique: Axial CT pulmonary angiographic phase images were performed through the chest after the administration of intravenous contrast. Coronal and Sagittal MIP reconstructed images were created and reviewed. Automated Exposure Control and Iterative Reconstruction dose reducing techniques were utilized. Contrast: Omnipaque 350 62 mL Findings: Pulmonary arteries: Exam is diagnostic to the subsegmental pulmonary arterial level. No filling defects identified to suggest a pulmonary embolus. Other findings: Lungs are stable in appearance. Large left-sided diaphragmatic defect noted with bilateral lower lobe consolidation, left greater than right. No pleural effusion or pneumothorax. Central airways are patent. No axillary or mediastinal adenopathy. Heart size is stable. No pericardial effusion. Impression: No pulmonary embolus. Stable appearance of the chest from the very recent comparison with lower lobe airspace disease could be due to compressive atelectasis and/or pneumonia. There is a preliminary report by [facility]. .
--- NOTE | 2017-04-29 08:50 | XRay Report ---
INDICATION: fever, hypoxia PROCEDURE: CHEST 2-VIEWS UPRIGHT (PA & LAT) Encounter: Initial COMPARISON: CT angiogram of the chest from the same date and chest x-ray from yesterday FINDINGS: Lungs are stable in appearance with linear airspace disease in the right lower lobe and airspace consolidation in the left lower lobe. Large left-sided diaphragmatic defect. Upper lung [place] are clear. No pneumothorax. Heart size and mediastinal contours are stable. Impression: Persistent lower lobe infiltrates could be due to atelectasis and or pneumonia. .
[2017-04-29] MEDS ORDERED: NON-FORMULARY MEDICATION 1 EACH EACH (Multivitamin [Multivitamins] 1 EACH) PO SCH (09:00)
[2017-04-29] MEDS ORDERED: BISACODYL 10 MG SUPPOSITORY RECTALLY ONE (09:00)
[2017-04-29] MEDS ORDERED: OXYBUTYNIN CHLORIDE 20 MG PO SCH (09:00)
[2017-04-29] MEDS ORDERED: NON-FORMULARY MEDICATION 1 EACH EACH (Cinnamon Bark [Cinnamon] 500 MG) PO SCH (09:00)
--- NOTE | 2017-04-29 09:10 | Infectious Disease Consult ---
Infectious Disease Consult Date of Consultation: 04/29/17 Requesting Physician: Nydia Medrano Reason for Consultation: antibiotic recs History of Present Illness: Mrs. Chilel is a 61 y/o woman with a h/o MS who reports that she bumped her L 2nd toe when she was getting in the shower about 10 days ago. Last Thursday night she had fever and achiness and was evaluated in the ED. She was given Levaquin for possible UTI. She was sent home, but returned because of continued achiness. She was found to have cellulitis involving the LLE. Vancomycin was started. She had fever, tachycardia, leukocytosis, and was hypoxic in the ED. CXR and CTA showed only atelectasis. Blood cultures are pending. Procalcitonin was elevated at 6. Her UA from 04/27 had bacteria, but no significant WBCs, urine culture is NGTD. Medications Home Medications Medication Instructions Recorded Confirmed Type Baclofen [Lioresal Intrathecal] 1 ml IT CONT #0 03/02/12 04/28/17 History Cinnamon Bark [Cinnamon] 500 mg PO DAILY #0 03/02/12 04/28/17 History Interferon Beta-1A [Avonex] 0.5 ml IM WEEKLY #0 03/02/12 04/28/17 History [place]-3 Fatty Acids [Fish Oil] 300 mg PO DAILY #0 03/02/12 04/28/17 History Atenolol 25 mg PO DAILY #0 09/29/15 04/28/17 History Oxybutynin Chloride [Oxybutynin 20 mg PO DAILY #0 09/29/15 04/28/17 History Chloride ER] Pravastatin Sodium [Pravachol] 40 mg PO HS #0 09/29/15 04/28/17 History Sertraline HCl 100 mg PO DAILY #0 09/29/15 04/28/17 History Meloxicam 15 mg PO DAILY #0 tab 08/04/16 04/28/17 History Acetaminophen [Tylenol Extra 1 - 2 tab PO Q6H PRN #0 tab 08/14/16 04/28/17 History Strength] Omeprazole 20 mg PO ACB #0 tab 08/14/16 04/28/17 History Triamcinolone Acetonide [Nasacort] 2 spray EA NOSTRIL DAILY PRN #0 ml 08/14/16 04/28/17 History Multivitamin [Multivitamins] 1 each PO DAILY 04/27/17 04/28/17 History Allergies Allergy/AdvReac Type Severity Reaction Status Date / Time clindamycin Allergy Mild PRURITIS Verified 04/28/17 16:03 sulfamethoxazole Allergy Unknown Verified 04/28/17 16:03 trimethoprim Allergy Unknown Verified 04/28/17 16:03 ceftriaxone sodium Allergy Mild PRURITIS Uncoded 04/28/17 16:03 [facility] Patient Stated Medical History Multiple Sclerosis Yes Hypertension Yes Gastroesophageal Reflux Yes Disease Hiatal Hernia Yes Other Musculoskeletal Yes: Arthritis in Left Shoulder Cellulitis Yes: Chronic Sepsis Yes Depression Yes Post Menopausal Yes Clinic Medical History (Last Updated 04/27/17 @ 13:11 by EDUARDO Rodriguez) Multiple sclerosis (Chronic Medical) H/o LLE cellulitis Surgical History: *baclofen pump Family History: reviewed and noncontributory - Social History Smoking status: Never smoker Household members: spouse Current occupational status: disabled Review of Systems Comprehensive ROS: completed and no additional positive findings except those as stated - Constitutional Constitutional: Present: fever(s), malaise. Absent: chills - EENMT Mouth/Throat: Present: dry mouth - Respiratory Respiratory: Present: dyspnea (mild). Absent: cough - Genitourinary Genitourinary: Absent: dysuria - Musculoskeletal Musculoskeletal: Absent: arthralgias - Integumentary/Breasts Integumentary: Present: erythema (LLE > RLE), swelling (LLE), wounds (L 2nd toe) - Neurological Neurological: Present: weakness Exam Vital Signs: Temperature 98.0 F 04/29/17 08:17 Pulse Rate 85 04/29/17 08:17 Respiratory Rate 20 04/29/17 08:17 Blood Pressure 115/64 04/29/17 08:17 Pulse Oximetry 90 04/29/17 08:17 Height/Weight/BMI: Height 1.75 m Weight 87.6 kg Body Mass Index 26.7 - Constitutional Present: no acute distress, well nourished - Routine HEENT Exam Head: Present: normocephalic, atraumatic Eye: Present: EOMI, PERRL ENT: Present: mucous membranes moist, dentition normal - Routine Neck Exam Present: supple - Routine Respiratory Exam Present: CTA bilaterally Comments: On O2 by NC - Routine Cardiovascular Exam Present: RRR. Absent: murmur - Routine Abdominal Exam Present: soft, normoactive bowel sounds, non distended, non tender. Absent: rebound - Routine Extremities Exam Present: edema (2+ LLE, 1+ RLE, pitting) - Routine Skin Exam Present: erythema (LLE with some warmth, small area of erythema RLE) Comments: Scabbed lesion with peeling off skin distal tip of L 2nd toe, also she has some dried blood on L great toe. Onychomycosis bilaterally - Routine Neurological Exam Present: alert, oriented X3, CN II-XII intact - Routine Psychiatric Exam Present: normal affect Results - Labs CBC & Chem 7: 04/29/17 04:18 04/29/17 04:19 Microbiology Results: Microbiology 04/28/17 18:00 Peripheral/Iv Start Blood Culture - Preliminary Culture Initiated - Results Pending 04/28/17 18:04 Peripheral/Iv Start Blood Culture - Preliminary Culture Initiated - Results Pending Impression: Sepsis secondary to cellulitis LLE, likely Streptococcal. Leukocytosis, improved. N/V, improved. Hypoxia. ? pneumonia vs atelectasis. Allergies ( poorly-defined) to Rocephin and clindamycin. H/o prior cellulitis LLE. Multiple sclerosis. Recommendation: She seems to think she's had improvement since the antibiotics were started. Recommend wound care evaluation to her L toes and consideration for wrapping of her LLE for edema. Continue elevation. Continue Vancomycin for now, I doubt the levaquin is needed. She has tolerated penicillins in the past, so when she improves, you could consider changing to dicloxacillin 500mg po QID. Sepsis Assessment - Evaluation Sepsis screening result: No Definite Risk
--- NOTE | 2017-04-29 09:15 | Pharmacy Consult-Antibiotics ---
Pharmacy Consult-Vancomycin - Laboratory Information WBC 9.6 T/MM3 (4.5-11.0) 04/29/17 04:18 BUN 20.0 MG/DL (7-17) H 04/29/17 04:19 Creatinine 0.6 MG/DL (0.7-1.2) L D 04/29/17 04:19 Procalcitonin 6.25 NG/ML H* 04/28/17 16:51 - Consult Information VANCOMYCIN CONSULT: Dx: CELLULITIS Current Renal Fx: SCr = 0.6mg/dl. Will give Vancomycin 2,000mg IV q12hrs. Will continue to monitor and adjust regimen to maintain therapeutic levels. Thank you.
[2017-04-29] MEDS: POLYETHYL GLYCOL 3350 17gm PACKET PO SCH (09:21)
[2017-04-29] MEDS: SERTRALINE 100 MG TABLET PO SCH (09:22)
[2017-04-29] MEDS: MULTI-VITAMIN PLAIN TABLET PO SCH (09:22)
--- NOTE | 2017-04-29 09:48 | Ultrasound Report ---
Indication: +ddimer, LE swelling PROCEDURE: US venous doppler LE BI: Encounter: Initial Comparison: None Technique: Color Doppler duplex and grayscale sonographic imaging of both lower extremities was performed. Findings: There is no evidence for acute deep venous thrombosis in either thigh. Specifically, serial graded compression was performed from the inguinal ligament to the popliteal bifurcation, bilaterally, demonstrating appropriate compressibility of the deep venous system. In addition, color and pulsed Doppler demonstrate appropriate spontaneous flow, variation with respiration, and augmentation with calf compression. At the ankle, normal flow is identified in the posterior tibial veins; these vessels are also normal in caliber. Impression: No evidence of acute DVT in either lower limb. .
--- NOTE | 2017-04-29 13:22 | Progress Note ---
<Crystal Velásquez - Last Filed: 04/29/17 13:18> Subjective: Patient is seen sitting in her room today. She reports she does feel better today. She still feels very weak. She wishes she could get up and around more in the room. In discussing this with the nurses, they report that even with 2 assist they have difficulty with transfers. She denies cough or shortness of breath. No urinary symptoms. Appetite is good, but she reports she doesn't have to eat much to feel full. Objective Vital signs: Temperature 98.5 F 04/29/17 12:00 Pulse Rate 71 04/29/17 12:00 Respiratory Rate 18 04/29/17 12:00 Blood Pressure 111/57 04/29/17 12:00 Pulse Oximetry 90 04/29/17 12:00 Height/Weight/BMI: Height 1.75 m Weight 87.6 kg Body Mass Index 26.7 - Constitutional Present: well nourished, well developed - Routine HEENT Exam ENT: Present: mucous membranes moist - Routine Respiratory Exam Present: CTA bilaterally. Absent: wheezes - Routine Cardiovascular Exam Present: RRR. Absent: murmur - Routine Abdominal Exam Present: soft, normoactive bowel sounds, non distended. Absent: tenderness - Routine Extremities Exam Present: normal capillary refill Comments: Erythema and swelling to the left lower extremity has decreased since yesterday. She still has moderate swelling to the left lower extremity and has erythema that extends to approximately mid tibia. Scabbed wound remains on the distal left second toe. - Routine Skin Exam Present: dry, warm - Routine Neurological Exam Present: alert, oriented X3 - Routine Lymphatic Exam Lymphatic: Absent: adenopathy - Routine Psychiatric Exam Present: normal affect, normal thought process Results - Labs CBC & Chem 7: 04/29/17 04:18 04/29/17 04:19 Assessment and Plan (1) Cellulitis Current visit: Yes Status: Acute (2) Hypoxia Current visit: Yes Status: Acute (3) UTI (urinary tract infection) Current visit: Yes Status: Acute (4) Severe sepsis Current visit: Yes Status: Acute Assessment and Plan: 04/28/2017-I reviewed this chart, the patient history, and the BOBBIN PAINTER's/PA's documented findings as above. We discussed and formulated the assessment and plan as above with the additions below.-Dr. Medrano Impression Severe sepsis as indicated by hypoxia, leukocytosis, bandemia, fever of 101.1, tachycardia, MAP less than 65 and systolic blood pressure less than 90. 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 Dooley (infectious disease) recommends discontinuation of Levaquin, as she should have adequate coverage with the vancomycin. Levaquin was DC'd. Venous Doppler of the bilateral legs to rule out DVT-negative. Nursing will work with physical therapy to arrange to get the patient up more. Would consult initiated for wound on left second toe. LFTs are improved, will resume statin. Sepsis Assessment - Evaluation Sepsis screening result: No Definite Risk Hospital Course Summary Disclaimer: The visit summary below is not to be considered part of the above Progress Note. Hospital Course: Severe sepsis as indicated by hypoxia, leukocytosis, bandemia, fever of 101.1, tachycardia, MAP less than 65 and systolic blood pressure less than 90. 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 Medrano attending. Expect patient to be hospitalized for at least 2 overnights given her failed outpatient treatment, hypoxia, immunosuppressed status, and severe sepsis. Continue Levaquin and add vancomycin. Pharmacy consult placed. Lovenox for DVT prophylaxis. Avoid SCDs given her lower extremity cellulitis Given the positive d-dimer and hypoxia, CTA and repeat chest x-ray were ordered. Bilateral venous Doppler of lower extremities to rule out DVT given positive d- dimer and lower extremity edema. Continue IV fluids for sepsis and hypotension. Repeat lactate is pending. Repeat CBC and CMP in a.m. given the leukocytosis and elevated LFTs Case discussed with Dr. Medrano. Upon dismissal, patient's care to return to her PCP, Dr. Mart. 04/29/17 Dr. Dooley (infectious disease) recommends discontinuation of Levaquin, as she should have adequate coverage with the vancomycin. Levaquin was DC'd. Venous Doppler of the bilateral legs to rule out DVT-negative. Nursing will work with physical therapy to arrange to get the patient up more. Would consult initiated for wound on left second toe. Repeat LFTs are normal. May resume statin. <Nydia Medrano - Last Filed: 04/29/17 17:20> Objective Vital signs: Temperature 98.9 F 04/29/17 14:00 Pulse Rate 86 04/29/17 14:00 Respiratory Rate 18 04/29/17 14:00 Blood Pressure 118/56 04/29/17 14:00 Pulse Oximetry 91 04/29/17 14:00 Height/Weight/BMI: Height 1.75 m Weight 87.6 kg Body Mass Index 26.7 Results - Labs CBC & Chem 7: 04/29/17 04:18 04/29/17 04:19 Assessment and Plan (1) Cellulitis Current visit: Yes Status: Acute (2) Hypoxia Current visit: Yes Status: Acute (3) UTI (urinary tract infection) Current visit: Yes Status: Acute (4) Severe sepsis Current visit: Yes Status: Acute Assessment and Plan: 04/29/2017-I reviewed this chart, the patient history, and the BOBBIN PAINTER's/PA's documented findings as above. We discussed and formulated the assessment and plan as above with the additions below.-Dr. Medrano Patient was seen today accompanied by her . She states she is starting to feel better. She is drinking okay. She is able to eat small portions but does not have much of an appetite. She has urinated several times today. She states her heel pain is gone today. Legs are less edematous. On exam she is alert and in no acute distress. Chest is clear to auscultation from the anterior. Cardiovascular reveals a regular rate and rhythm. Abdomen is soft and nontender. Extremities reveal decreased edema of the bilateral lower extremities. Erythema is slightly decreased in the left leg today. Venous Dopplers were negative for DVT. CTA chest was negative for PE. Blood cultures are negative. White count has improved. I discussed the patient earlier today with Dr. Dooley and appreciate her help. We 'll continue on vancomycin and stop Levaquin. Discontinue IV fluids. Use incentive spirometer. Increase activity as tolerated. PT and OT consulted. I discussed with the patient the possibility of going to inpatient rehabilitation again to increase her strength prior to going home. She stated that she is willing to do that if needed, but she would prefer to go directly home if able. Wound and skin was consulted earlier today. Recheck labs tomorrow. Hospital Course Summary Disclaimer: The visit summary below is not to be considered part of the above Progress Note.
[2017-04-29] MEDS ORDERED: BISACODYL 10 MG SUPPOSITORY RECTALLY PRN (17:22)
[2017-04-29] MEDS ORDERED: LEVOFLOXACIN PB 750 MG/150 ML BAG IV SCH (19:00)
[2017-04-29] MEDS: ENOXAPARIN 40 MG/0.4 ML INJECTION SQ SCH (20:49)
[2017-04-29] MEDS: PRAVASTATIN 40 MG TABLET PO SCH (20:50)
[2017-04-29] MEDS: SALINE FLUSH 10ml SYRINGE IV PRN (21:01)
[2017-04-30] MEDS: Oxycodone/Acetaminophen 5/325 1 TAB PO PRN (02:56)
[2017-04-30] MEDS: SALINE FLUSH 10ml SYRINGE IV PRN ×2 (06:27→20:05)
[2017-04-30] MEDS: OMEPRAZOLE 20 MG CAPSULE PO SCH (06:27)
--- NOTE | 2017-04-30 08:21 | XRay Report ---
Indication: hypoxia PROCEDURE: XR chest 1V: Encounter: Initial Comparison: April 28, 2017 Findings: Worsening airspace consolidation in the right and left lower lobes. Possible small effusions. No pneumothorax. Heart size and mediastinal contours are stable. Pulmonary vascularity is more prominent. Impression: Developing pulmonary edema. .
[2017-04-30] MEDS: SERTRALINE 100 MG TABLET PO SCH (09:35)
[2017-04-30] MEDS: POLYETHYL GLYCOL 3350 17gm PACKET PO SCH (09:36)
[2017-04-30] MEDS: MULTI-VITAMIN PLAIN TABLET PO SCH (09:37)
--- NOTE | 2017-04-30 11:22 | Wound Care Progress Note ---
Wound Management - Patient Status Premedicated Prior to Dressing Change: No - Wound Left Great Toe Wound Type: Injury Wound Present on Admission?: Yes Wound Bed Appearance: Eschar Tunneling: No Undermining: No Drainage Amount: None Drainage Odor: No Odor Dressing Status: Open to Air (Painted with Betidine) Dressing Change Patient Tolerance: Tolerated Well (Asked Manufacturing Shift Supervisor to make appointment on dismissal to wound clinic)
--- NOTE | 2017-04-30 11:23 | Wound Care Progress Note ---
Wound Management - Patient Status Premedicated Prior to Dressing Change: No - Wound Left Toe - 2nd Digit Wound Type: Injury Wound Present on Admission?: Yes Wound Bed Appearance: Eschar Tunneling: No Undermining: No Drainage Amount: None Drainage Odor: No Odor Dressing Status: Open to Air (painted with betidine, will see at clinic after dismissal.)
[2017-04-30] MEDS ORDERED: FUROSEMIDE 20 MG/2 ML INJECTION IVP ONE (16:05)
--- NOTE | 2017-04-30 16:45 | Progress Note ---
Subjective: The patient was seen in the room today accompanied by her . She states she's a little stronger today and was able to help with transfers and was able to get up into her wheelchair for a couple of hours today. She is requiring 3 L of oxygen now instead of the 2 L yesterday. She has some increased edema in her legs. She denies shortness of breath. She is eating and drinking okay. She had hip pains and generalized achiness on admission but that has improved now. Pain in her foot and leg have improved. Objective Vital signs: Temperature 97.9 F 04/30/17 14:53 Pulse Rate 80 04/30/17 14:53 Respiratory Rate 17 04/30/17 14:53 Blood Pressure 126/67 04/30/17 14:53 Pulse Oximetry 96 04/30/17 14:53 Height/Weight/BMI: Height 1.75 m Weight 87.6 kg Body Mass Index 26.7 Comments: GEN-alert, oriented, no acute distress CV-regular rate and rhythm CHEST-clear to auscultation bilaterally ABD-soft, nontender with positive bowel sounds -no [place] EXT-bilateral lower extremity left greater than right, continued erythema of the left foot and two thirds of the way up the calf. Mild erythema of the right anterior cheng NEURO-significant for weakness of the legs with MS SKIN-warm and dry, cellulitis described as above under extremity Results - Labs CBC & Chem 7: 04/30/17 04:03 04/30/17 04:03 Labs: Neutrophils 66% bands 9% - Impressions Chest x-ray on my read and per radiology reveals developing pulmonary edema Assessment and Plan (1) Cellulitis Current visit: Yes Status: Acute (2) Hypoxia Current visit: Yes Status: Acute (3) UTI (urinary tract infection) Current visit: Yes Status: Acute (4) Severe sepsis Current visit: Yes Status: Acute Assessment and Plan: 04/30/2017 Impression Severe sepsis as indicated by hypoxia, leukocytosis, bandemia, fever of 101.1, tachycardia, MAP less than 65 and systolic blood pressure less than 90.-Resolved Cellulitis-left lower extremity-improving, white count has improved Possible UTI versus asymptomatic bacteriuria-urine culture from 04/27/2017 shows 2 species of coag-negative staph Developing pulmonary edema Acute hypoxic respiratory failure-mild likely in part pulmonary edema and atelectasis Multiple sclerosis Implanted Baclofen pump 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 When doing better, can switch to dicloxacillin as recommended by Dr. Dooley Lasix and potassium 1 for pulmonary edema. May need to repeat tomorrow. Continue PT and OT for strengthening. Hopefully the patient will be strong enough to return home when she is medically stable to leave the hospital. Restart atenolol tomorrow morning for hypertension. Hospital Course Summary Disclaimer: The visit summary below is not to be considered part of the above Progress Note. Hospital Course: Severe sepsis as indicated by hypoxia, leukocytosis, bandemia, fever of 101.1, tachycardia, MAP less than 65 and systolic blood pressure less than 90. 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 Medrano attending. Expect patient to be hospitalized for at least 2 overnights given her failed outpatient treatment, hypoxia, immunosuppressed status, and severe sepsis. Continue Levaquin and add vancomycin. Pharmacy consult placed. Lovenox for DVT prophylaxis. Avoid SCDs given her lower extremity cellulitis Given the positive d-dimer and hypoxia, CTA and repeat chest x-ray were ordered. Bilateral venous Doppler of lower extremities to rule out DVT given positive d- dimer and lower extremity edema. Continue IV fluids for sepsis and hypotension. Repeat lactate is pending. Repeat CBC and CMP in a.m. given the leukocytosis and elevated LFTs Case discussed with Dr. Medrano. Upon dismissal, patient's care to return to her PCP, Dr. Mart. 04/29/17 Dr. Dooley (infectious disease) recommends discontinuation of Levaquin, as she should have adequate coverage with the vancomycin. Levaquin was DC'd. Venous Doppler of the bilateral legs to rule out DVT-negative. Nursing will work with physical therapy to arrange to get the patient up more. Would consult initiated for wound on left second toe. Repeat LFTs are normal. May resume statin.
[2017-04-30] MEDS: PRAVASTATIN 40 MG TABLET PO SCH (20:02)
[2017-04-30] MEDS: ACETAMINOPHEN 500 MG TABLET PO PRN (20:02)
[2017-04-30] MEDS: ENOXAPARIN 40 MG/0.4 ML INJECTION SQ SCH (20:03)
[2017-04-30] MEDS: BACLOFEN PO SCH (20:03)
[2017-05-01] MEDS: OMEPRAZOLE 20 MG CAPSULE PO SCH (06:11)
[2017-05-01] MEDS: SALINE FLUSH 10ml SYRINGE IV PRN ×2 (06:11→20:52)
[2017-05-01] MEDS: SERTRALINE 100 MG TABLET PO SCH (08:46)
[2017-05-01] MEDS: MULTI-VITAMIN PLAIN TABLET PO SCH (08:46)
[2017-05-01] MEDS: ATENOLOL 25 MG TABLET PO SCH (08:46)
[2017-05-01] MEDS: POLYETHYL GLYCOL 3350 17gm PACKET PO SCH (08:47)
--- NOTE | 2017-05-01 08:54 | Pharmacy Consult-Antibiotics ---
Pharmacy Consult-Vancomycin - Laboratory Information WBC 5.3 T/MM3 (4.5-11.0) 05/01/17 05:30 BUN 9.0 MG/DL (7-17) 05/01/17 05:30 Creatinine 0.5 MG/DL (0.7-1.2) L 05/01/17 05:30 Procalcitonin 1.32 NG/ML 05/01/17 05:30 VANCOMYCIN CONSULT: Vancomycin Trough = 22.75 mcg/ml. Today's S Cr = 0.5 mg/dl. Cr Cl ~ 70 mL/min I changed the Vancomycin to 1,750 mg IV q12hrs. The Pharmacy will continue to monitor and make adjustments accordingly. Thank you, Saleem Pedro [facility].
[2017-05-01] MEDS ORDERED: GLYCERIN ADULT RECTAL SUPPOSITORY RECTALLY PRN (09:12)
--- NOTE | 2017-05-01 09:27 | XRay Report ---
Indication: hypoxia PROCEDURE: XR chest 1V: Encounter: Initial Comparison: April 30, 2017 Findings: Slightly improved aeration of the perihilar lung zones with residual patchy infiltrates. Small effusions. No pneumothorax. Heart size and mediastinal contours are stable. Left-sided diaphragmatic defect. Pulmonary vascularity appears less congested. Impression: Improving pulmonary edema. .
--- NOTE | 2017-05-01 12:14 | Progress Note ---
<Crystal Velásquez - Last Filed: 05/01/17 14:54> Subjective: Patient is seen today lying in her bed. She reports she is feeling better. No longer has aching and feels her strength is improving. She would like to get up in the room more frequently. She continues to require 3 L of oxygen. States that if she takes the oxygen off, she will hear a "squeak" in her lungs on expiration. She does feel constipated and would like a glycerin suppository. Objective Vital signs: Temperature 97.8 F 05/01/17 07:50 Pulse Rate 75 05/01/17 11:34 Respiratory Rate 18 05/01/17 11:34 Blood Pressure 131/69 05/01/17 11:34 Pulse Oximetry 96 05/01/17 11:34 Height/Weight/BMI: Height 1.75 m Weight 83.6 kg Body Mass Index 26.7 - Constitutional Present: no acute distress, well nourished, well developed - Routine Respiratory Exam Present: CTA bilaterally. Absent: wheezes - Routine Cardiovascular Exam Present: RRR, S1, S2. Absent: murmur - Routine Abdominal Exam Present: soft, normoactive bowel sounds, non distended. Absent: tenderness - Routine Extremities Exam Present: edema (this continues to improve. Left leg is chronically larger than right. Erythema is receding as well. Wound on the distal second toe is showing signs of improvement), normal capillary refill - Routine Skin Exam Present: dry, warm - Routine Neurological Exam Present: alert, oriented X3 - Routine Lymphatic Exam Lymphatic: Absent: adenopathy - Routine Psychiatric Exam Present: normal affect, normal thought process Results - Labs CBC & Chem 7: 05/01/17 05:30 05/01/17 05:30 Assessment and Plan (1) Cellulitis Current visit: Yes Status: Acute (2) Hypoxia Current visit: Yes Status: Acute (3) UTI (urinary tract infection) Current visit: Yes Status: Acute (4) Severe sepsis Current visit: Yes Status: Acute Assessment and Plan: Impression Severe sepsis as indicated by hypoxia, leukocytosis, bandemia, fever of 101.1, tachycardia, MAP less than 65 and systolic blood pressure less than 90.-Resolved Cellulitis-left lower extremity-improving, white count has improved Acute Hypokalemia Left second toe wound-healing Possible UTI versus asymptomatic bacteriuria-urine culture from 04/27/2017 shows 2 species of coag-negative staph Improving pulmonary edema Acute hypoxic respiratory failure-mild, likely in part pulmonary edema and atelectasis-improving Multiple sclerosis Implanted Baclofen pump 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 Can switch to dicloxacillin on discharge, as recommended by Dr. Dooley Pulmonary edema improved with Lasix. Lasix and potassium 1 again today for improving pulmonary edema. Regarding her hypokalemia, will repeat potassium level at 1900, give additional potassium supplementation if still low at that time. Continue PT and OT for strengthening. Patient is not interested in rehabilitation. She wants to go home when she is dismissed. Try to wean off oxygen. Chest x-ray performed today showed improvement of pulmonary edema. Patient had a positive stool for occult blood last night. It was ordered by the telemedicine doctor overnight because the nurse noted blood in the stool. Patient declined symptoms. Her last colonoscopy was in August this year by Dr. Eldridge and was negative per her report. She does have chronic constipation and hemorrhoids. Will not workup further at this point given her recent colonoscopy, stable hemoglobin, and hemorrhoidal disease. Hospital Course Summary Disclaimer: The visit summary below is not to be considered part of the above Progress Note. Hospital Course: Severe sepsis as indicated by hypoxia, leukocytosis, bandemia, fever of 101.1, tachycardia, MAP less than 65 and systolic blood pressure less than 90. 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 Medrano attending. Expect patient to be hospitalized for at least 2 overnights given her failed outpatient treatment, hypoxia, immunosuppressed status, and severe sepsis. Continue Levaquin and add vancomycin. Pharmacy consult placed. Lovenox for DVT prophylaxis. Avoid SCDs given her lower extremity cellulitis Given the positive d-dimer and hypoxia, CTA and repeat chest x-ray were ordered. Bilateral venous Doppler of lower extremities to rule out DVT given positive d- dimer and lower extremity edema. Continue IV fluids for sepsis and hypotension. Repeat lactate is pending. Repeat CBC and CMP in a.m. given the leukocytosis and elevated LFTs Case discussed with Dr. Medrano. Upon dismissal, patient's care to return to her PCP, Dr. Mart. 04/29/17 Dr. Dooley (infectious disease) recommends discontinuation of Levaquin, as she should have adequate coverage with the vancomycin. Levaquin was DC'd. Venous Doppler of the bilateral legs to rule out DVT-negative. Nursing will work with physical therapy to arrange to get the patient up more. Would consult initiated for wound on left second toe. Repeat LFTs are normal. May resume statin. 05/01/17 Continue on vancomycin. Can switch to dicloxacillin on discharge, as recommended by Dr. Dooley Pulmonary edema improved with Lasix. Lasix and potassium 1 again today for improving pulmonary edema. Regarding her hypokalemia, will repeat potassium level at 1900, give additional potassium supplementation if still low at that time. Continue PT and OT for strengthening. Patient is not interested in rehabilitation. She wants to go home when she is dismissed. Try to wean off oxygen. Chest x-ray performed today showed improvement of pulmonary edema. Patient had a positive stool for occult blood last night. It was ordered by the telemedicine doctor overnight because the nurse noted blood in the stool. Patient declined symptoms. Her last colonoscopy was in August this year by Dr. Eldridge and was negative per her report. She does have chronic constipation and hemorrhoids. Will not workup further at this point given her recent colonoscopy, stable hemoglobin, and hemorrhoidal disease. <Nydia Medrano Micheal - Last Filed: 05/01/17 20:12> Objective Vital signs: Temperature 96.9 F 05/01/17 16:00 Pulse Rate 71 05/01/17 16:00 Respiratory Rate 18 05/01/17 16:00 Blood Pressure 128/67 05/01/17 16:00 Pulse Oximetry 93 05/01/17 16:00 Height/Weight/BMI: Height 1.75 m Weight 83.6 kg Body Mass Index 26.7 Results - Labs CBC & Chem 7: 05/01/17 05:30 05/01/17 05:30 Assessment and Plan (1) Cellulitis Current visit: Yes Status: Acute (2) Hypoxia Current visit: Yes Status: Acute (3) UTI (urinary tract infection) Current visit: Yes Status: Acute (4) Severe sepsis Current visit: Yes Status: Acute Assessment and Plan: 05/01/2017-I reviewed this chart, the patient history, and the SIDING APPLICATOR's/PA's documented findings as above. We discussed and formulated the assessment and plan as above with the additions below.-Dr. Medrano The patient was seen earlier this afternoon accompanied by her . She states she sat up in her chair quite a bit today. She is eating and drinking well. She no longer has the generalized achiness. She feels like her strength is getting much better and she feels like she is transferring well enough to go home when she is medically stable. Her has been helping with transfers and he is in agreement. On exam she is alert and in no acute distress. Chest is clear to auscultation. Cardiovascular reveals a regular rate and rhythm. Abdomen is soft and nontender. Extremities reveal markedly decreased erythema in the left lower extremity. Edema is improved as well. Possible dismissal to home in the next 1-2 days. Overall she is doing well. Hospital Course Summary Disclaimer: The visit summary below is not to be considered part of the above Progress Note.
[2017-05-01] MEDS ORDERED: FUROSEMIDE 40 MG/4 ML INJECTION IVP ONE (14:57)
[2017-05-01] MEDS: ENOXAPARIN 40 MG/0.4 ML INJECTION SQ SCH (20:52)
[2017-05-01] MEDS: BACLOFEN PO SCH (20:53)
[2017-05-01] MEDS: PRAVASTATIN 40 MG TABLET PO SCH (21:00)
[2017-05-02] MEDS: ACETAMINOPHEN 500 MG TABLET PO PRN (02:30)
[2017-05-02] MEDS: OMEPRAZOLE 20 MG CAPSULE PO SCH (05:48)
[2017-05-02] MEDS: MULTI-VITAMIN PLAIN TABLET PO SCH (09:02)
[2017-05-02] MEDS: SALINE FLUSH 10ml SYRINGE IV PRN (09:02)
[2017-05-02] MEDS: ATENOLOL 25 MG TABLET PO SCH (09:02)
[2017-05-02] MEDS: SERTRALINE 100 MG TABLET PO SCH (09:02)
[2017-05-02] MEDS: POLYETHYL GLYCOL 3350 17gm PACKET PO SCH (09:02)
[2017-05-02 09:07] VITALS: RESP 16
[2017-05-02] MEDS ORDERED: [UNRECOGNIZED DRUG - OTHER] IT SCH (11:15)
[2017-05-02] MEDS ORDERED: BACLOFEN IT SCH (11:15)
[2017-05-02 12:15] VITALS: BP 124/68; PULSE 76; TEMP 98.7; O2SAT 95
--- NOTE | 2017-05-02 14:25 | Discharge Summary ---
Discharge Information Date of admission: 04/28/17 18:50 Anticipated date of discharge: 05/02/17 Attending Physician: Nydia Medrano MD Primary care physician: Erasto Mart MD Consults: 04/28/17 Pharmacy Consult [CONS] Routine Pharmacy Consult: Vancomycin 04/28/17 21:16 Physician Consult [CONS] Routine Consulting Provider: Christel Dooley Reason For Exam: cellulitis Ordering Provider has Notified Crystal Mounter: Yes Comment: i will notify 04/29/17 11:50 [facility] Consult [CONS] Routine Reason for consultation: cellulitis, wound on left toe, edema-?need for compression 05/02/17 11:36 Wound [facility]in Clinic Consult [CONS] Routine Reason for consultation: LEFT GROIN FOLD - Discharge Diagnosis (1) Cellulitis Status: Acute (2) Hypoxia Status: Acute (3) UTI (urinary tract infection) Status: Acute (4) Severe sepsis Status: Acute - Laboratory Labs: 05/02/17 04:14 05/02/17 04:14 White count on admission was 12.6 with 75% neutrophils and 14% bands D-dimer was 276 which is mildly elevated Pro-calcitonin was elevated at 6.25 on admission and improved to 1.3 to prior to discharge Plasma lactate was normal 2 C-reactive protein was 253 on admission AST and ALT were mildly elevated at 56 and 60 respectively on admission. Those have normalized Troponin was normal on admission The patient had a normal colored stool with some red blood possibly from hemorrhoid. Stool Hemoccult was positive - Microbiology Blood cultures are negative after 3 days - Radiology Radiology: CTA chest done on admission for elevated d-dimer, hypoxia, and lower extremity swelling Impression: No pulmonary embolus. Stable appearance of the chest from the very recent comparison with lower lobe airspace disease could be due to compressive atelectasis and/or pneumonia. Chest x-ray on admission showed persistent lower lobe infiltrates could be due to atelectasis and/or pneumonia Bilateral venous Dopplers of the legs were negative for DVT Chest x-ray on 01/28/2017 revealed developing pulmonary edema Chest x-ray 01/29/2017 showed improving pulmonary edema History of Present Illness HPI: Patient is a 61-year-old patient with multiple sclerosis who presented to the emergency room yesterday with complaint of nausea, vomiting, and weakness. She was started on Levaquin for UTI and cellulitis of her left second toe. She returned to the emergency room today because she was continuing to feel very weak and was not improving. On arrival to the emergency room today she had SPO2 on room air of 77%. Her white blood cell count yesterday was 18.6 and is down to 12.6 today. Her band neutrophils were 12% yesterday and 14% today. Liver enzymes slightly elevated today compared to yesterday. C-reactive protein is high at 253. Lactate was normal yesterday 1.5 and is 0.7 today. Her pro calcitonin yesterday was 0.42 and today is elevated at 6.25. Her urinalysis yesterday showed positive nitrates and 3+ bacteria. Her group A strep screen was negative and culture is pending. Chest x-ray performed at yesterday's visit showed an "enlarging left diaphragmatic defect with an intrathoracic stomach and lower lobe areas of atelectasis or scarring. Superimposed pneumonia is difficult to entirely exclude." CT scan also showed the "large left-sided diaphragmatic defect containing herniated stomach and colon within the chest. There is nearby consolidation which probably due to chronic compressive atelectasis although small area of underlying pneumonia or aspiration cannot be entirely excluded. 6 mm right middle lobe pulmonary nodule." Patient is seen in the emergency room with her present. She reports she started feeling "bad" the night before last and symptoms have steadily progressed. Her thinks the redness to the left lower extremity has increased. She continues to feel achy and weak, but is no longer having nausea. She has chronic swelling to her lower extremities, with the left always being larger than the right. She ambulates using a power scooter. Objective Vital signs: Temperature 98.7 F 05/02/17 12:14 Pulse Rate 76 05/02/17 12:14 Respiratory Rate 16 05/02/17 12:14 Blood Pressure 124/68 05/02/17 12:14 Pulse Oximetry 95 05/02/17 12:14 Height/Weight/BMI: Height 1.75 m Weight 82.1 kg Body Mass Index 26.7 Hospital Course This is a general summary of the patient's hospital course. For more details refer to the complete medical record. Hospital course: Discharge diagnoses Severe sepsis as indicated by hypoxia, leukocytosis, bandemia, fever of 101.1, tachycardia, MAP less than 65 and systolic blood pressure less than 90. 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 Pulmonary edema-resolved Bright red blood 1 in the stool, likely secondary to hemorrhoid. She had a normal colonoscopy within the past 1 year and no further workup was deemed necessary during this hospital course Mild elevated liver enzymes at admission likely secondary to sepsis-resolved Chronic lower extremity edema Hospital course Patient was admitted on 04/28/2017 with severe sepsis secondary to cellulitis of the left lower extremity. She had bumped her left second toe and had an open area that scabbed over which was likely the source of her infection. Patient was started on vancomycin and Levaquin. Dr. Christel Dooley was consulted and recommended discontinuation of Levaquin and continuation of vancomycin. She stated that when infection had improved she could switch to dicloxacillin 500 mg 4 times a day at discharge. Over the hospital course, the patient's edema and erythema of the left leg markedly improved. At this time, she states the edema is back to her normal level. The erythema looks much better. She has been afebrile. White count has normalized. Pro-calcitonin has normalized. She is eating and drinking well. She did have hypoxia on admission, likely secondary to atelectasis and sepsis. CTA was negative for PE. She did not have symptoms of pneumonia. She later developed some mild pulmonary edema and was diuresed. She's been off oxygen now for over 24 hours and has maintained normal room air O2 sats. Physical therapy and occupational therapy did work with the patient during her hospital stay. She initially had significant weakness but now is able to transfer with one assist and she had her both feel she is strong enough to go back home. The wound and skin nurses did see the patient regarding the abrasion with eschar on her left second toe. They recommended leaving it open to air and painted with Betadine. She has an appointment to follow-up at the wound care clinic on 05/06/2017 at 9 AM. Her nurse today also noticed some skin breakdown in her groin area. Her nurse is also a certified wound and skin nurse and she placed Iodosorb with gauze and a Mepilex dressing which she stated could be left in place until her appointment with the wound care team on 05/06/2017. The patient should follow-up with Dr. Mart later this week. She will be given a 7 day prescription for dicloxacillin and he can determine whether this should be continued for a longer period of time. He can also decide when to resume her interferon for her MS. On the day of discharge, the patient is alert and oriented 3. Chest is clear to auscultation. Cardiovascular reveals a regular rate and rhythm. Abdomen is soft and nontender. Extremities reveal mild bilateral lower extremity edema, more so in the left leg than the right leg which is chronic. She has mild erythema over the bilateral anterior shins. The erythema of the left lower extremity has markedly improved since admission. She has an eschar in the left second toe with no erythema or swelling. On 05/02/2017 the patient appears stable for dismissal to home with family. Follow-up with wound care and Dr. Mart later this week. Time spent with patient: discharge greater than 30 minutes Discharge Plan - Med Rec/Dispo Referrals/Follow Up: Erasto Mart MD [Family Provider] - 1 Week [place] Instructions: Cellulitis (GEN), Hypoxia (GEN) Additional Instructions: APPOINTMENT AT WOUND CLINIC ON 05/06 AT 9AM. [id number] Follow-up with Dr. Mart on Thursday or of this coming week. Discuss with him when you should restart your interferon injections for MS Prescriptions: New Dicloxacillin [Dynapen] 500 mg PO QID 7 Days #56 cap Continue [place]-3 Fatty Acids [Fish Oil] 300 mg PO DAILY #0 Cinnamon Bark [Cinnamon] 500 mg PO DAILY #0 Sertraline HCl 100 mg PO DAILY #0 Atenolol 25 mg PO DAILY #0 Oxybutynin Chloride [Oxybutynin Chloride ER] 20 mg PO DAILY #0 Meloxicam 15 mg PO DAILY #0 tab Acetaminophen [Tylenol Extra Strength] 1 - 2 tab PO Q6H PRN #0 tab PRN Reason: PAIN/FEVER Omeprazole 20 mg PO ACB #0 tab Triamcinolone Acetonide [Nasacort] 2 spray EA NOSTRIL DAILY PRN #0 ml PRN Reason: ALLERY SYMPTOMS Multivitamin [Multivitamins] 1 each PO DAILY Oxycodone/Acetaminophen 5/325 [Percocet 5/325] 1 - 2 tab PO Q4-6HPRN PRN #20 tab PRN Reason: Pain Baclofen [Lioresal Intrathecal] 1 ml IT CONT #0 Pravastatin Sodium [Pravachol] 40 mg PO HS #0 Discontinued Interferon Beta-1A [Avonex] 0.5 ml IM WEEKLY #0 Levofloxacin [Levaquin] 500 mg PO DAILY #9 tab Discharge Instructions/Outpatient Orders: Final Provider Discharge Instructions Location: Determined By Patient - Disposition 01 Discharged Home, Self-Care
== END 2017-05-02 15:05 | disposition home or self-care (01) | DRG 871 ==
LOC: ED 15:54 → MED 18:50
PROVIDERS: ADMIT Internal Medicine; ATTEND Internal Medicine